=== PATIENT | female | born 1985 | race Caucasian/White ===

== ENCOUNTER 2016-12-24 18:55 | Emergency (ER) | payer OTHER ==
[~2016-12-24] VITALS: Ht 149.9 cm; Wt 67.6 kg
[2016-12-24 19:05] VITALS: TEMP 36.9; Ht 149.9 cm; Wt 67.6 kg
[2016-12-24] MEDS ORDERED: IBUP-1050 PO (19:20)
[2016-12-24] MEDS ORDERED: MELO7.5T5 PO (19:21)
[2016-12-24] MEDS ORDERED: MULT-513 PO (19:22)
[2016-12-24 19:32] LABS: BASO % 0.6 %; BASO ABS # 0.05 K/uL (0-0.2); COMPLETE YES; EOS % 2.1 %; HEMATOCRIT 38.7 % (37-47); IG% 0.3 %; LYMPH % 40.7 %; MEAN CELL VOLUME 91.1 fL (80-100); MEAN CORPUSCULAR HEMOGLOBIN 30.6 pg (25-34); MEAN CORPUSCULAR HGB CONC 33.6 g/dl (32-36); MEAN PLATELET VOLUME 10.4 fL (7.4-10.4); MONO % 9.3 %; PLATELET COUNT 237 K/uL (130-400); RED BLOOD COUNT 4.25 M/uL (4.2-5.4); WHITE BLOOD COUNT 8.59 K/uL (4.8-10.8)
--- NOTE | 2016-12-24 20:18 | DIAGNOSTIC IMAGING REPORT ---
L FOOT MIN 3 VIEWS ROUTINE CLINICAL HISTORY: 31 years-old Female presenting with left foot pain, base of great toe. TECHNIQUE: Frontal, oblique, and lateral views of the left foot were obtained. COMPARISON: None. FINDINGS: No acute fracture or malalignment. Bipartite medial sesamoid. No abnormality of the first toe. Accessory navicular noted. No radiographic soft tissue abnormality. IMPRESSION: No acute osseous injury of the left foot. Electronically signed by: Edy Vasquez M.D. 12/24/2016 8:17 PM Dictated Date/Time: 12/24/2016 8:15 PM
[2016-12-24] MEDS ORDERED: NAPROXEN 250 MG TAB PO STA (20:23)
[2016-12-24] MEDS ORDERED: OXYCODONE IR HOME PACK PO STA (20:26)
[2016-12-24] MEDS ORDERED: NAPR-1169 PO (20:34)
--- NOTE | 2016-12-24 20:36 | EMERGENCY ROOM VISIT NOTE ---
ED Visit Note First contact with patient: 19:10 CHIEF COMPLAINT: Foot pain HISTORY OF PRESENT ILLNESS: This 31 year old female patient presents to the emergency department, ambulatory, complaining of swelling and severe pain in the left foot at rest, with any palpation, and worse with weight bearing. The patient states the pain has been going on for approximately 2 days. She denies any known injury, it just occurred one morning spontaneously. The patient states "it feels like my toes are curled". She states it gets worse with extension and pressure or touch of the area. She denies a history of gout, but states her grandmother does have gout and she is concerned that this could be causing her symptoms. The patient rates the pain as severe and 7/10. The patient has not had relief of the pain with intermittent meloxicam and ibuprofen. The patient is able to walk, but states this worsens the pain. No numbness or weakness. No ankle pain. There are no lacerations of the foot. The patient is able to move all of their toes and their ankle. No previous fracture to this foot. REVIEW OF SYSTEMS: GENERAL: A 6 system review of systems was completed with positives and pertinent negatives in the HPI. ALLERGIES: None MEDICATIONS: Multivitamin PMH: None SOCIAL HISTORY: The patient lives locally with family. She denies drug, alcohol use. She does admit to smoking approximately 1 pack cigarettes per week. PHYSICAL EXAM: Vital Signs: Reviewed Nurse's notes, vital signs stable. GENERAL : This is a 31-year-old white female, in no acute distress, but appears in pain , well-developed, well-nourished. MUSCULOSKELATAL: There is no visual deformity of the left foot. There is no significant erythema or ecchymosis. There is no warmth. There is tenderness and swelling over the 1st metatarsal-phalange joint of the left foot. There is no tenderness over the lateral or medial malleolus. No tenderness of the tib/fib. The range of motion of the great toe is mildly limited secondary to pain. There is no tenderness over the plantar fascia. The skin is intact and there are no lacerations or puncture wounds. Dorsalis pedis pulse 2+. Capillary refill less than 2 seconds. RADIOLOGY: L FOOT MIN 3 VIEWS ROUTINE CLINICAL HISTORY: 31 years-old Female presenting with left foot pain, base of great toe. TECHNIQUE: Frontal, oblique, and lateral views of the left foot were obtained. COMPARISON: None. FINDINGS: No acute fracture or malalignment. Bipartite medial sesamoid. No abnormality of the first toe. Accessory navicular noted. No radiographic soft tissue abnormality. IMPRESSION: No acute osseous injury of the left foot. Electronically signed by: Edy Vasquez M.D. 12/24/2016 8:17 PM Dictated Date/Time: 12/24/2016 8:15 PM EMERGENCY DEPARTMENT COURSE: I examined the patient. An X-ray of the Left foot was reviewed by myself and radiologist and reveals no acute fracture or dislocation. CBC and uric acid levels were normal. I do, however, suspect gout based on the patient's symptoms. I discussed treating the patient for gout and she is in agreement. The patient was given a dose of Naproxen here in the ED. She was given a homepack for OxyIR, as she asked several times for pain medication. Discharge instructions were reviewed. The patient was discharged home in good condition. I attest that I have personally reviewed the patient's current medication list. Patient was found to have normal blood pressure on screening and does not require follow-up. DIFFERENTIAL DIAGNOSIS: gout, osteomyelitis, sprain, strain, fracture, contusion , malignancy, and others DIAGNOSIS: Foot pain, possibly gout Current/Historical Medications Scheduled Ibuprofen (Advil), 400-600 MG PO Q6H Multivitamins/Minerals (Mvi With Minerals), 1 TAB PO DAILY Naproxen (Naprosyn), 500 MG PO BID Scheduled PRN Meloxicam (Mobic), 7.5 MG PO DAILY PRN for Pain Allergies Coded Allergies: No Known Allergies (Unverified , 07/11/15) Vital Signs Date Time Temp Pulse Resp B/P (MAP) Pulse Ox O2 Delivery O2 Flow Rate FiO2 12/24/16 19:05 36.9 81 18 128/82 99 Room Air Laboratory Results 12/24/16 19:25 Red Blood Count 4.25, Mean Corpuscular Volume 91.1, Mean Corpuscular Hemoglobin 30.6, Mean Corpuscular Hemoglobin Concent 33.6, Mean Platelet Volume 10.4, Neutrophils (%) (Auto) 47.0, Lymphocytes (%) (Auto) 40.7, Monocytes (%) (Auto) 9.3, Eosinophils (%) (Auto) 2.1, Basophils (%) (Auto) 0.6, Neutrophils # (Auto) 4.03, Lymphocytes # (Auto) 3.50, Monocytes # (Auto) 0.80, Eosinophils # (Auto) 0.18, Basophils # (Auto) 0.05 Test 12/24/16 19:25 White Blood Count 8.59 K/uL (4.8-10.8) Red Blood Count 4.25 M/uL (4.2-5.4) Hemoglobin 13.0 g/dL (12.0-16.0) Hematocrit 38.7 % (37-47) Mean Corpuscular Volume 91.1 fL (80-100) Mean Corpuscular Hemoglobin 30.6 pg (25-34) Mean Corpuscular Hemoglobin Concent 33.6 g/dl (32-36) Platelet Count 237 K/uL (130-400) Mean Platelet Volume 10.4 fL (7.4-10.4) Neutrophils (%) (Auto) 47.0 % Lymphocytes (%) (Auto) 40.7 % Monocytes (%) (Auto) 9.3 % Eosinophils (%) (Auto) 2.1 % Basophils (%) (Auto) 0.6 % Neutrophils # (Auto) 4.03 K/uL (1.4-6.5) Lymphocytes # (Auto) 3.50 K/uL (1.2-3.4) Monocytes # (Auto) 0.80 K/uL (0.11-0.59) Eosinophils # (Auto) 0.18 K/uL (0-0.5) Basophils # (Auto) 0.05 K/uL (0-0.2) RDW Standard Deviation 44.1 fL (36.4-46.3) RDW Coefficient of Variation 13.3 % (11.5-14.5) Immature Granulocyte % (Auto) 0.3 % Immature Granulocyte # (Auto) 0.03 K/uL (0.00-0.02) Uric Acid 5.8 mg/dl (2.6-7.2) Departure Information Impression Primary Impression: Pain of left great toe Dispostion Home / Self-Care Condition GOOD Prescriptions Naproxen (Naprosyn) 500 Mg Tab 500 MG PO BID, #30 TAB Prov: Lilliam Forrest, OLEKSANDR 12/24/16 Referrals Angelita Moya D.O. (PCP) Patient Instructions ED Diet Gout, Gout, [facility] Additional Instructions You were seen in the emergency department for left foot pain. White blood cell count and uric acid level were normal, however based on her symptoms, I do suspect gout. X-ray was negative for acute fracture or bony injury. You have given a prescription for naproxen 500 mg twice daily. Please take this medication until symptoms subside. You have been given a home pack for OxyIR to be used for pain control. Take 1 tablets every 6 hours as needed for pain. This is a narcotic medication. You cannot drive or consume alcohol while on this medicine. This medicine should only be used for pain that cannot be controlled with [id number] pain medicines. Please follow-up this week with your PCP for further management and re-check of your symptoms. Return to the emergency department for worsening pain, swelling, redness, fever , chills, nausea, vomiting, or other concerning symptoms.
[2016-12-24 20:59] VITALS: BP 121/86; PULSE 87; O2SAT 100
== END 2016-12-24 21:01 | disposition home or self-care (01) ==
LOC: C.EDB 18:55 → C.EDD 21:01
DX: M79.672 Pain in left foot (principal); F17.200 Nicotine dependence, unspecified, uncomplicated

== ENCOUNTER 2017-03-20 00:02 | Emergency (ER) | payer OTHER ==
[~2017-03-20] VITALS: Ht 149.9 cm; Wt 69.0 kg
[~2017-03-20 00:02] MED LIST changes: -CEPH500C2 PO
[2017-03-20 00:06] VITALS: TEMP 36.9; Ht 149.9 cm; Wt 69.0 kg
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
[2017-03-20] MEDS ORDERED: XYLOCAINE 1%/SOD BICARB 20 ML VIAL INFIL ONE (00:30)
[2017-03-20 01:03] LABS: CALCIUM 8.7 mg/dl (8.5-10.1); CREATININE 0.63 mg/dl (0.60-1.20); POTASSIUM 4.1 mmol/L (3.5-5.1)
[2017-03-20] MEDS ORDERED: CEFAZOLIN SOD 1000MG/7.5 ML IV PUSH IV STA (01:13)
[2017-03-20] MEDS ORDERED: ACETAMINOPHEN 500 MG TAB PO STA (02:26)
[2017-03-20] MEDS ORDERED: CEPH500C2 PO (02:27)
--- NOTE | 2017-03-20 02:29 | EMERGENCY ROOM VISIT NOTE ---
ED Visit Note I was asked by Dr. Fry to perform laceration repair of this patient's right second finger laceration. Exam shows a laceration proximal to the right cuticle with proximal nailbed avulsion. Verbal consent was obtained to perform the procedure. Using sterile technique the wound was cleaned with Betadine. The area was sterilely draped. 6 ml of 1 % buffered lidocaine was used to perform a digital block to anesthetize the finger. Once the patient was anesthetized, the wound was copiously irrigated under pressure with sterile saline. The nailbed was replaced in the anatomical position. The laceration was repaired using 4 simple interrupted 4-0 nylon sutures with the wound edges being well approximated. The patient tolerated the procedure well. Hemostasis was achieved.
[2017-03-20 02:56] VITALS: BP 111/74; PULSE 90; O2SAT 98
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
--- NOTE | 2017-03-20 06:36 | DIAGNOSTIC IMAGING REPORT ---
R HAND MIN 3 VIEWS ROUTINE CLINICAL HISTORY: Right hand pain status post trauma COMPARISON: None. DISCUSSION: There is a transverse fracture through the tuft of the distal phalanx of the third finger. There is overlying soft tissue swelling. No additional fractures are visualized. There are no dislocations. IMPRESSION: Acute fracture involving the tuft of the distal phalanx of the third finger Electronically signed by: Peña Golden M.D. 03/20/2017 6:35 AM Dictated Date/Time: 03/20/2017 6:34 AM
== END 2017-03-20 02:57 | disposition home or self-care (01) ==
LOC: EDBD 00:02 → C.EDA 00:02
DX: S62.632B Displaced fracture of distal phalanx of right middle finger, initial encounter for open fracture (principal); V48.5XXA Car driver injured in noncollision transport accident in traffic accident, initial encounter; Y92.488 Other paved roadways as the place of occurrence of the external cause; Z80.9 Family history of malignant neoplasm, unspecified; F17.210 Nicotine dependence, cigarettes, uncomplicated

== ENCOUNTER → 2017-03-20 | Outpatient (CLI) | payer OTHER ==
[~2017-03-20] MED LIST: CEPH500C2 PO; IBUP-1050 PO; MELO7.5T5 PO; MULT-513 PO; NAPR-1169 PO
== END | disposition home or self-care (01) ==
LOC: C.LAB 00:04
DX: Z02.83 Encounter for blood-alcohol and blood-drug test (principal)